=== PATIENT | female | born 1995 | race Hispanic/Latino ===

== ENCOUNTER 2021-02-02 10:53 | Day surgery (SDC) | payer BC, OTHER ==
[2021-02-01 13:09] LABS: Bilirubin Direct 0.2 mg/dL (0-0.2)
[2021-02-02] MEDS ORDERED: Ringers Lactate 1,000 ML IV ONE ×2 (11:06→14:01)
[2021-02-02] MEDS ORDERED: BUPIVACAINE 0.5% PF 10 ML VIAL ONE (11:16)
[2021-02-02] MEDS ORDERED: FENTANYL CITR 100 MCG/2 ML ONE (11:22)
[2021-02-02] MEDS ORDERED: dexAMETHasone 10 MG/ML VIAL ONE (11:22)
[2021-02-02] MEDS ORDERED: MIDAZOLAM HCL 2 MG/2 ML INJ ONE (11:22)
[2021-02-02] MEDS ORDERED: propofoL 200 MG/20 ML VIAL IV ONE (11:22)
[2021-02-02] MEDS ORDERED: KETOROLAC 30 MG/ML INJ ONE (11:23)
[2021-02-02] MEDS ORDERED: ROCURONIUM 50 MG/5 ML VIAL IV ONE (11:24)
[2021-02-02] MEDS ORDERED: ONDANSETRON 4 MG/2 ML VIAL ONE ×2 (11:24→13:44)
[2021-02-02] MEDS ORDERED: LIDOCAINE 1% MPF 30 ML VIAL ONE (11:24)
[2021-02-02] MEDS ORDERED: CEFOXITIN/NS 1gm 1 GM/50 ML BAG ONE (12:24)
--- NOTE | 2021-02-02 13:05 | P.BOP ---
Preoperative diagnosis: acute cholecystitis, biliary dyskinesia, RUQ abd pain Postoperative diagnosis: same Primary procedure: Laparoscopic cholecystectomy Latex Spooler: Jackie Shelton (Sushma) Estimated blood loss: <10cc Specimen: gb Findings: as above Anesthesia: General Complications: None Transferred to: Recovery Room Condition: Good
[2021-02-02] MEDS: HYDROMORPHONE HCL 1 MG/ML INJ ONE ×2 (13:45→13:50)
[2021-02-02] MEDS ORDERED: MEPERIDINE HCL 25 MG/ML SYR ONE (13:55)
[2021-02-02] MEDS ORDERED: CODEINE 30MG/APAP 300MG TAB ONE (15:17)
[2021-02-02] MEDS ORDERED: HYDROCOD 2.5mg-ACETAMIN 108mg/5mL Soln ONE (15:22)
[2021-02-02 16:42] VITALS: BP 129/70; TEMP 98; O2SAT 97
--- NOTE | 2021-02-02 18:36 | OP ---
Date of Procedure: 02/02/2021 Surgeon: Anthony New MD Actuarial Assistant: JAJA Moura. Preoperative Diagnoses: Acute cholecystitis, biliary dyskinesia, right upper quadrant abdominal pain . Postoperative Diagnosis: Acute cholecystitis, biliary dyskinesia, right upper quadrant abdominal alicia n. Procedure: Laparoscopic cholecystectomy. Ebl: Less than 10 cc. Specimen: Gallbladder. Finding: As above. Anesthesia: General plus local. Complications: None. Indication: This is a case of a female who comes to us with above diagnosis, fully explained the cory efits, alternatives, and risks of laparoscopic possible open cholecystectomy, which include, but not limited to infection, bleeding, damage to adjacent structures, anesthesia complication, cholelithiasi s, bile leak, pancreatitis, MO, and even . She also understands this may not relieve the sympto ms. She might need more than one surgical intervention. She understood, signed a consent. She also understands the importance of the low-caffeine diet, low-fat diet, minimal spicy food. 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 Procedure In Detail: The patient was brought to the operating room, placed in supine position, anest hesia was done without complication. Abdominal area was prepped and draped in a usual sterile fashio n. Marcaine 0.5% was injected for local anesthetic followed by sharp incision of the skin in the inf raumbilical region. Incision was carried down to fascia, which was opened under direct vision. Trinh toneum was encountered, opened under direct vision. Vicryl #1 was placed inside the fascia. Yariel trocar was carefully introduced. No bleeding was obtained. I placed 3 more trocars, 5 mm each one o f them in epigastric, right upper quadrant area under direct visualization. This allowed me to put a grasper in the fundus of the gallbladder, another grasper in the infundibulum retracting the gallbla dder in the inferolateral fashion exposing the triangle of Calot obtaining critical view. The cystic duct and cystic artery were clearly isolated, freed circumferentially, and a connection between thos e and the gallbladder were clearly identified. I proceeded to ligate those by using at least 3 clips proximal and 1 clip distally, ligation in middle. Same was done with the cystic artery. No bile le ak. No bleeding. The gallbladder was removed from liver using Bovie cauterizer and removed from abd ominal cavity using EndoCatch through the umbilical incision. The area was inspected once again. No bile leak. No bleeding. At that moment, I proceeded to remove the trocars under direct vision. De flated pneumoperitoneum. Closed the fascia with #1 Vicryl, irrigated subcutaneous tissue, closed eleonora t with 3-0 chromic and skin in a subcuticular fashion with 3-0 chromic and Steri-Strips on top. Spon ge counts and instrument counts correct. The patient tolerated the procedure well. The patient was sent to recovery in stable condition. KATEY/FRANK Voice ID: [id number] Report ID: [id number]
--- NOTE | 2021-02-02 18:42 | DS ---
Date of Discharge: 02/02/2021 Diagnoses: Acute cholecystitis, biliary dyskinesia, right upper quadrant abdominal pain. Procedure: Laparoscopic cholecystectomy. Disposition: Home. Activity: As tolerated, no heavy lifting. Plan: Follow up in my office in 1 week. Call for appointment at [phone]. Keep the area dry for 48 hours, then may shower. Keep Steri-Strip intact. KATEY/FRANK Voice ID: [id number] Report ID: [id number]
== END 2021-02-02 16:00 | disposition home or self-care (01) ==
LOC: OR 10:53
PROVIDERS: ATTEND Surgery
PROC: 0FT44ZZ Resection of Gallbladder, Percutaneous Endoscopic Approach (ICD-10-PCS; principal; 2021-02-02 12:00)
DX: K81.1 Chronic cholecystitis (principal); K82.8 Other specified diseases of gallbladder; R10.11 Right upper quadrant pain; Z20.822 Contact with and (suspected) exposure to COVID-19
CPT/HCPCS: 36415; 82150; 84703; 88304; 82248; 47562; U0003; J2704; J2250; J3010; J1100; J2175; J1170; J7120 ×2; J0694; J2405 ×2

== ENCOUNTER → 2021-02-20 | Emergency (ER) | payer BC, OTHER ==
--- OUTSIDE RECORDS SUMMARY | 2021-02-20 21:05 | XMS REPORT | Continuity of Care Document ---
:1995 Author Organization [facility] t Address [address] [place] [address] Care Team Providers Name Role Phone Jessica MAY Primary Care Physician Unavailable Paula JERRY Attending Clinician Unavailable Fawad Orozco Attending Clinician Claritza BLACK F Attending Clinician BROOKE ACHARYA Attending Clinician Unavailable ANGUS LOPEZ Attending Clinician Unavailable Arsenio KASPER Attending Clinician Doctor Unassigned, Name Attending Clinician Unavailable Provider, Urgent Care Attending Clinician Unavailable Bird BLACK Attending Clinician Lab, Fam Pob I Attending Clinician Unavailable Kenney CEBALLOS Attending Clinician KENNEY Attending Clinician Unavailable Chitra Bishop DO Attending Clinician ARSENIO Admitting Clinician Unavailable FAWAD PERALTA Admitting Clinician Unavailable BROOKE ACHARYA Admitting Clinician Unavailable Arsenio KASPER Admitting Clinician Payers Payer Name Policy Type Policy Number Effective Date Expiration Date S ource [facility] [id number] 2009 00:00:00 SRC AN AETNA [id number] 2014 COMPANY 00:00:00 [facility] [id number] 2020 CHOICE MEDICAID 00:00:00 Problems Condition Condition Condition Status Onset Resolution Last Treating Co mments Source Name Details Category Date Date Treatment Clinician Date 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 2-21 ity of pain pain 00:00: [place] 00 Medical Branch No known No known Disease Unive rs active active ity of problems problems [facility] Allergies, Adverse Reactions, Alerts Allergy Allergy Status Severity Reaction(s) Onset Inactive Treating Comm ents Source Name Type Date Date Clinician NO KNOWN Drug Active Univers ALLERGIE Class ity of S [facility] Social History Social Habit Start Date Stop Date Quantity Comments Source ASSERTION 2019-10-06 [facility] 00:00:00 [facility] Exposure to Not sure [facility] SARS-CoV-2 (event) Medica l [place] Tobacco use and 2020-01-19 2020-01-19 Never used [facility] exposure 00:00:00 00:00:00 [facility] Sex Ass[birth year] At [birth year] [facility] 00:00:00 00:00:00 [facility] Smoking Status Start Date Stop Date Source Never smoker [facility] Unknown if ever smoked [facility] Medications Ordered Filled Start Stop Current Ordering Indication Dosage Frequency Signature Comments Components Source Medication Medication Date Date Medication? Clinician (SIG) Name Name iopamidol 2020-03- No [id number] 120mL 120 mL, Univers (ISOVUE 04-01 Intravenou ity o f 370-500 mL) 06:00: 04:46 s, ONCE, 1 [place] injection 00 :00 dose, On Medica l 120 mL Tue Branch 01/30/21 at 0000, Routine maalox:diph 2020-03- No 15mL 15 mL, Uni vers enhydrAMINE 04-01 Oral ity of :lidocaine 05:30: 04:32 ([place] 2 % viscous 00 :00 Swallow), Med ical 1:1:1 ONCE, 1 Branch (FIRST-MOUT dose, On HWASH BLM) Mon oral 01/29/21 suspension at 2330, 15 mL Routine famotidine 2020-03- No 20mg 20 mg, IV U nivers 20 mg in NS 04-01 Piggyback, i ty of 50 ml 05:30: 04:40 ONCE, 1 [place] (PEPCID) 20 00 :00 dose, On Medi meg mg/50 mL Mon Branch Piggyback 01/29/21 20 mg at 2330, 50 mL ketorolac 2020-03- No 15mg 15 mg, Unive rs (TORADOL) 04-01 Slow IV ity of injection 05:15: 04:32 Push, [place] 15 mg 00 :00 ONCE, 1 Medical dose, On Branch 01/29/21 at 2315, Routine
food court team member approving Restricted medication : Ela PERALTA cephALEXin 2020-03- Yes [id number] 500mg Take 1 Univers 500 mg 03-3107 tablet by ity of tablet 00:00: 05:59 mouth 2 [place] 00 :00 (two) Medical times Branch daily for 7 days. 2019-03 Yes Take 1 Univers vit 2-22 TAB-CAP/M2 ity of calc,iron,f 00:40: by mouth [place] olic 51 daily. Medical ( Branch VITAMIN ORAL) 2019-03 Yes Take 1 Univers vit 2-21 TAB-CAP/M2 ity of calc,iron,f 18:40: by mouth [place] 51 daily. Medical ( Branch VITAMIN ORAL) proMETHazin 2019-03 Yes [id number] 25mg Take 1 Univers e 25 mg 1-18 tablet by ity of tablet 00:00: mouth [place] 00 every 4 Medical (four) Branch hours as needed for Nausea and Vomiting (N/V). proMETHazin 2019-03 Yes [id number] 25mg Take 1 Univers e 25 mg 1-18 tablet by ity of tablet 00:00: mouth [place] 00 every 4 Medical (four) Branch hours as needed for Nausea and Vomiting (N/V). proMETHazin 2019-03 Yes [id number] 25mg Take 1 Univers e 25 mg 1-18 tablet by ity of tablet 00:00: mouth [place] 00 every 4 Medical (four) Branch hours as needed for Nausea and Vomiting (N/V). proMETHazin 2019-03 Yes [id number] 25mg Take 1 Univers e 25 mg 1-18 tablet by ity of tablet 00:00: mouth [place] 00 every 4 Medical (four) Branch hours as needed for Nausea and Vomiting (N/V). diazePAM 2020-0 2020- No 5mg 5 mg, Univers (VALIUM) 8-03 08-03 Oral, ity of tablet 5 mg 01:30: 00:25 ONCE, 1 [place] :[place] dose, [facility] 10/03/19 at Branch 2030, DARIUS diazePAM 2020-0 Yes [id number] 5mg Take 1 Uni vers (VALIUM) 5 8-02 tablet by ity of mg tablet 00:00: mouth 3 [place] 00 (three) Medical times Branch daily as needed for Muscle Spasms. diazePAM 2020-0 Yes [id number] 5mg Take 1 Uni vers (VALIUM) 5 8-02 tablet by ity of mg tablet 00:00: mouth 3 [place] 00 (three) Medical times Branch daily as needed for Muscle Spasms. diazePAM 2020-0 Yes [id number] 5mg Take 1 Uni vers (VALIUM) 5 8-02 tablet by ity of mg tablet 00:00: mouth 3 [place] 00 (three) Medical times Branch daily as needed for Muscle Spasms. diazePAM 2020-0 Yes [id number] 5mg Take 1 Uni vers (VALIUM) 5 8-02 tablet by ity of mg tablet 00:00: mouth 3 [place] 00 (three) Medical times Branch daily as needed for Muscle Spasms. diazePAM 2020-0 Yes [id number] 5mg Take 1 Uni vers (VALIUM) 5 8-02 tablet by ity of mg tablet 00:00: mouth 3 [place] 00 (three) Medical times Branch daily as needed for Muscle Spasms. diazePAM 2020-0 Yes [id number] 5mg Take 1 Uni vers (VALIUM) 5 8-02 tablet by ity of mg tablet 00:00: mouth 3 [place] 00 (three) Medical times Branch daily as needed for Muscle Spasms. diazePAM 2020-0 Yes [id number] 5mg Take 1 Uni vers (VALIUM) 5 8-02 tablet by ity of mg tablet 00:00: mouth 3 [place] 00 (three) Medical times Branch daily as needed for Muscle Spasms. diazePAM 2020-0 Yes [id number] 5mg Take 1 Uni vers (VALIUM) 5 8-02 tablet by ity of mg tablet 00:00: mouth 3 [place] 00 (three) Medical times Branch daily as needed for Muscle Spasms. levoFLOXaci 2015- Yes 500mg Take 1 Uni vers n 0-23 tablet by ity of (LEVAQUIN) 00:00: mouth [place] 500 mg 00 every 24 Medical tablet (twenty-fo Branch ur) hours. levoFLOXaci 2015- Yes 500mg Take 1 Uni vers n 0-23 tablet by ity of (LEVAQUIN) 00:00: mouth [place] 500 mg 00 every 24 Medical tablet (twenty-fo Branch ur) hours. levoFLOXaci 2015- Yes 500mg Take 1 Uni vers n 0-23 tablet by ity of (LEVAQUIN) 00:00: mouth [place] 500 mg 00 every 24 Medical tablet (twenty-fo Branch ur) hours. levoFLOXaci 2015- Yes 500mg Take 1 Uni vers n 0-23 tablet by ity of (LEVAQUIN) 00:00: mouth [place] 500 mg 00 every 24 Medical tablet (twenty-fo Branch ur) hours. levoFLOXaci 2015-03 Yes 500mg Take 1 Uni vers n 0-23 tablet by ity of (LEVAQUIN) 00:00: mouth [place] 500 mg 00 every 24 Medical tablet (twenty-fo Branch ur) hours. levoFLOXaci 2015-03 Yes 500mg Take 1 Uni vers n 0-23 tablet by ity of (LEVAQUIN) 00:00: mouth [place] 500 mg 00 every 24 Medical tablet (twenty-fo Branch ur) hours. levoFLOXaci 2015-03 Yes 500mg Take 1 Uni vers n 0-23 tablet by ity of (LEVAQUIN) 00:00: mouth [place] 500 mg 00 every 24 Medical tablet (twenty-fo Branch ur) hours. levoFLOXaci 2015- Yes 500mg Take 1 Uni vers n 0-23 tablet by ity of (LEVAQUIN) 00:00: mouth [place] 500 mg 00 every 24 Medical tablet (twenty-fo Branch ur) hours. levoFLOXaci 2015- Yes 500mg Take 1 Uni vers n 0-23 tablet by ity of (LEVAQUIN) 00:00: mouth [place] 500 mg 00 every 24 Medical tablet (twenty-fo Branch ur) hours. Immunizations Ordered Filled Immunization Date Status Comments [facility] e Immunization Name Name Td 2015-12-24 Completed [facility] 00:00:00 [place] [facility] Td 2015-12-24 Completed University of 00:00:00 [facility] Td 2015-12-24 Completed University of 00:00:00 [place] [facility] Td 2015-12-24 Completed University of 00:00: [place] [facility] Td 2015-12-24 Completed University of 00:00:00 [place] [facility] Td 2015-12-24 Completed University of 00:00:00 [place] [facility] Td 2015-12-24 Completed University of 00:00:00 [place] [facility] Td 2015-12-24 Completed University of 00:00:00 [facility] Branch Td 2015-12-24 Completed University of 00:00:00 [facility] Vital Signs Vital Name Observation Time Observation Value Comments Source Systolic blood 2021-01-30 06:23:00 115 mm[Hg] Univer sity of pressure [facility] Diastolic blood 2021-01-30 06:23:00 76 mm[Hg] Unive rsity of pressure [facility] Heart rate 2021-01-30 06:23:00 75 /min [facility] Respiratory rate 2021-01-30 06:23:00 16 /min [facility] Oxygen saturation in 2021-01-30 06:23:00 100 /min [facility] Arterial blood by [facility] Pulse oximetry [place] Body temperature 2021-01-30 02:01:00 37.44 Tanja [facility] [place] [facility] Body height 2021-01-30 02:01:00 167.6 cm [facility] Body weight 2021-01-30 02:01:00 72.576 kg [facility] BMI 2021-01-30 02:01:00 25.82 kg/m2 [facility] Systolic blood 2020-02-21 23:39:00 120 mm[Hg] Univer sity of pressure [facility] Diastolic blood 2020-02-21 23:39:00 76 mm[Hg] Unive rsity of pressure [facility] Heart rate 2020-02-21 23:39:00 86 /min [facility] ty [facility] Body temperature 2020-02-21 23:39:00 37.22 Tanja Univ ersity of [facility] Respiratory rate 2020-02-21 23:39:00 18 /min [facility] Body height 2020-02-21 23:39:00 170.2 cm Universi ty of [place] [facility] [place] Body weight 2020-02-21 23:39:00 86.183 kg Universi ty of [place] [facility] BMI 2020-02-21 23:39:00 29.76 kg/m2 Universi ty of [facility] Branch Systolic blood 2020-02-21 23:39:00 120 mm[Hg] Univer sity of pressure [facility] Branch Diastolic blood 2020-02-21 23:39:00 76 mm[Hg] Unive rsity of pressure [facility] Branch Heart rate 2020-02-21 23:39:00 86 /min Universi ty of [facility] Body temperature 2020-02-21 23:39:00 37.22 Tanja Univ ersity of [facility] Branch Respiratory rate 2020-02-21 23:39:00 18 /min Univ ersity of [facility] Body height 2020-02-21 23:39:00 170.2 cm Universi ty of [facility] Body weight 2020-02-21 23:39:00 86.183 kg Universi ty of [facility] BMI 2020-02-21 23:39:00 29.76 kg/m2 Universi ty of [place] [facility] [place] Systolic blood 2020-01-20 01:07:00 137 mm[Hg] Univer sity of pressure [facility] Diastolic blood 2020-01-20 01:07:00 75 mm[Hg] Unive rsity of pressure [facility] Heart rate 2020-01-20 01:07:00 63 /min Universi ty of [facility] Body temperature 2020-01-20 01:07:00 37 Tanja Univ ersity of [facility] Respiratory rate 2020-01-20 01:07:00 17 /min Univ ersity of [facility] Body height 2020-01-20 01:07:00 167.6 cm Universi ty of [facility] Body weight 2020-01-20 01:07:00 80.74 kg Universi ty of [facility] Branch BMI 2020-01-20 01:07:00 28.73 kg/m2 Universi ty of [facility] Oxygen saturation in 2020-01-20 01:07:00 99 /min University of Arterial blood by [facility] Pulse oximetry Branch Systolic blood 2020-01-20 01:07:00 137 mm[Hg] Univer sity of pressure [facility] Diastolic blood 2020-01-20 01:07:00 75 mm[Hg] Unive rsity of pressure [facility] Heart rate 2020-01-20 01:07:00 63 /min Universi ty of [facility] Body temperature 2020-01-20 01:07:00 37 Tanja Univ ersity of [facility] Respiratory rate 2020-01-20 01:07:00 17 /min [facility] Body height 2020-01-20 01:07:00 167.6 cm Universi ty of [facility] Body weight 2020-01-20 01:07:00 80.74 kg Universi ty of [facility] BMI 2020-01-20 01:07:00 28.73 kg/m2 Universi ty [facility] Oxygen saturation in 2020-01-20 01:07:00 99 /min University of Arterial blood by [facility] Pulse oximetry Branch Systolic blood 2019-10-04 00:01:00 142 mm[Hg] Univer sity [facility] Diastolic blood 2019-10-04 00:01:00 93 mm[Hg] Unive rsity of [facility] Heart rate 2019-10-04 00:01:00 82 /min Universi ty of [facility] Body temperature 2019-10-04 00:01:00 37.5 Tanja [facility] Respiratory rate 2019-10-04 00:01:00 20 /min Univ [facility] Body weight 2019-10-04 00:01:00 68.04 kg Universi ty [facility] Oxygen saturation in 2019-10-04 00:01:00 100 /min University of Arterial blood by [facility] Pulse oximetry Branch Procedures Procedure Date / Time Performed Performing Clinician Candy e CT ABDOMEN PELVIS W 2021-01-30 04:48:50 Ela Peralta [facility] CONTRAST [facility] US GALL BLADDER 2021-01-30 03:28:08 Ela Peralta [place] [facility] f [place] [facility] LIPASE 2021-01-30 02:23:00 Ela Peralta [place] [facility] [place] [facility] MAGNESIUM 2021-01-30 02:23:00 Ela Peralta [place] [facility] COMP. METABOLIC PANEL 2021-01-30 02:23:00 Ela Peralta [facility] ([id number]) Medical [place] CBC WITH DIFF 2021-01-30 02:23:00 Ela Peralta [facility] URINALYSIS 2021-01-30 02:23:00 Ela Peralta Fawad [facility] POCT TEST 2021-01-30 02:23:00 Ela Peralta [facility] CONSENT/REFUSAL FOR 2021-01-30 01:46:20 Doctor Unassigned, No [facility] Medical Branch TREATMENT ASSIGNMENT OF BENEFITS 2020-02-21 22:54:53 Doctor Unassigned, No [facility] POCT FLU A AND B 2020-01-20 01:31:00 Tricia Pang [facility] (MOLECULAR) [facility] POCT URINALYSIS 2020-01-20 01:24:00 Lisha Moulton [facility] POCT TEST 2019-10-04 00:14:00 Kinza Bishop [facility] NOTICE OF PRIVACY 2019-10-03 23:52:00 Doctor Unassigned, No Univ [facility] CONSENT/REFUSAL FOR 2019-10-03 23:51:44 Doctor Unassigned, No [facility] TREATMENT Encounters Start End Encounter Admission Attending Care Care Encounter Source Date/Time Date/Time Type Type Clinicians Facility Department ID 2020-12-30 Outpatient P [facility] JAMMIE [id number] Univers 12:36:00 ity [facility] 2020-12-30 Outpatient P [facility] JAMMIE [id number] Univers 12:35:[facility] [place] [facility]12[facility]29 Emergency [facility] [id number] Univers 10:16:05 [facility] [place] 2021-01-29 2021-01-30 Emergency X CLARITZA MOPEE ERT [id number] Univers 20:03:00 00:26:00 JESUS smith [facility] 2021-01-29 2021-01-30 Emergency Ela Peralta [facility] [id number]. [id number] Univers 20:03:00 00:26:00 Jesus Jerry [id number]. 10 ity [facility] [id number] [facility] [id number] [facility] 084 [place] 2020-06-21 2020-06-26 Inpatient PATRIZIA, [facility] 1023 [facility] 18:45:00 13:20:00 AN 2020-06-12 2020-06-13 Emergency E JOHN, [facility] [id number] [facility] 22:20:00 01:48:00 [facility] 2020-02-21 2020-02-21 [facility] Jolly Cesar [place] [id number] [facility] 16:56:00 18:20:00 Encounter [place] [id number] ity of [place] [id number] [facility] [id number] [place] [id number] [place] 2020-02-21 2020-02-21 [facility] Jolly Cesar [place] [id number] 16:56:00 18:20:00 Encounter [place] [id number] [place] 4.2.7.2.686 Rose [place] [id number] [facility] 2020-02-21 2020-02-21 Orders Doctor LISHA [id number] Univers 00:00:00 00:00:00 Only Unassigned, CLIVE [id number] ity of [place] [facility] 4.2.7.2.686 Alvin as [id number] [facility] 009 [place] 2020-02-21 2020-02-21 Orders Doctor HUSAIN [id number] 00:00:00 00:00:00 Only Unassigned, CLIVE [id number] [place] [facility] 4.2.7.2.686 [id number] 2020-01-19 2020-01-19 Urgent Provider, [facility] [id number] Univers 19:07:17 19:27:17 Care [facility] [id number] ity of [place] 4.2.7.2.686 Alvin as Professio [id number] Mo dical [facility] 044 [place] [address] 2020-01-19 2020-01-19 Urgent Provider, [facility] [id number] 19:07:17 19:27:17 Care [facility] Health [id number] Care [place] 4.2.7.2.686 Professio [id number] nal [facility] Office [address] 2020-01-19 2020-01-19 Laboratory Lab, Adc Fam Pob I [facility] [id number]. [id number] Univers 18:57:11 19:17:11 Only Lisha Moulton [facility] [id number] ity of [place] 4.2.7.2.686 Alvin as Professio [phone] Me dical [address] Office [address] 2020-01-19 2020-01-19 Outpatient R [facility] [id number] Univers 19:00:00 19:00:00 [id number] ity [facility] 2020-01-19 2020-01-19 Outpatient R KENNEY [facility] [id number] Univers 19:00:00 19:00:00 LISHA itjo [facility] 2020-01-19 2020-01-19 Letter Doctor LISHA [id number] Univers 00:00:00 00:00:00 (Out) Unassigned, CLIVE [id number] ity of [place] [facility] [id number] Alvin as [phone] [facility] 044 [place] 2019-10-03 2019-10-03 Emergency [facility] [id number] Univers 19:03:00 19:42:00 Kinza Witt [id number] ity of [place] [id number] [facility] [id number] [facility] 084 [place] 2019-10-03 2019-10-03 Orders Doctor LISHA [id number] Univers 00:00:00 00:00:00 Only Unassigned, CLIVE [id number] ity of [place] [facility] [id number] Alvin as [id number] [facility] 009 [place] Results Test Description Test Time Test Comments Results Result Comments Source MAGNESIUM 2021-01-30 02:51:25 Test Item Value Reference Range Interpretation Comme nts MAGNESIUM (test code = 5930535877) 1.9 mg/dL 1.7-2.4 Lab Interpretation (test code = 16037-8) Normal [facility] ([id number])2021-01-30 02:50:44 Test Item Value Reference Range Interpretation Comments NA (test code = 136 mmol/L 135-145 9836239931) K (test code = 3.6 mmol/L 3.5-5.0 4038489294) CL (test code = 104 mmol/L 98-108 8367127503) CO2 TOTAL (test code 26 mmol/L 23-31 = 3499304391) AGAP (test code = 2-16 9037710144) BUN (test code = 17 mg/dL 7-23 8636308530) GLUCOSE (test code = 90 mg/dL 70-110 9615955041) CREATININE (test code 0.57 mg/dL 0.50-1.04 = 5950540416) TOTAL BILI (test code 0.6 mg/dL 0.1-1.1 = 3302300279) CALCIUM (test code = 9.2 mg/dL 8.6-10.6 2037751400) T PROTEIN (test code 7.6 g/dL 6.3-8.2 = 7436966611) ALBUMIN (test code = 4.6 g/dL 3.5-5.0 4437083135) ALK PHOS (test code = 64 U/L 34-122 6097731849) ALTv (test code = 22 U/L 5-35 1742-6) AST(SGOT) (test code 24 U/L 13-40 = 1436621950) eGFR (test code = mL/min/1.73m2 6644213554) NORMA (test code = NORMA) Association of Glomerular Filtration Rate (GFR) and Staging of Kidney Disease* + + +- +| GFR (mL/min/1.73 m2) ?| With Kidney Damage ?| ?Without Kidney Damage+ ------+ ----+ ------+| ?>90 ?| ?Stage one ?| ? Normal ?+ -+ + -+| ?60-89 ?| ?Stage two ?| ? Decreased GFR ? + + +- +| ?30-59 ?| ?Stage three ?| ? Stage three ? + + +- +| ?15-29 ?| ?Stage four ? | ? Stage four ?+ -+ + -+| ?<15 (or dialysis) ? ?| ?Stage five ? | ? Stage five ?+ -+ + -+ *Each stage assumes the associated GFR level has been in effect for at least three months. ?Stages 1 to 5, with or without kidney disease, indicate chronic kidney disease. Notes: Determination of stages one and two (with eGFR >59mL/min/1.73 m2) requires estimation of kidney damage for at least three months as defined by structural or functional abnormalities of the kidney, manifested by either:Pathological abnormalities or Markers of kidney damage (including abnormalities in the composition of the blood or urine or abnormalities in imaging tests). [facility] 02[facility]50:44 Test Item Value Reference Range Interpretation Comments LIPASE (test code = 9925113757) 83 U/L 0-220 Lab Interpretation (test code = Normal 07972-9) [facility] WITH [id number] 02:35:42 Test Item Value Reference Range Interpretation Comments WBC (test code = See_Comment [Automated message] 6690-2) The system [employer] generated this result transmitted ref erence range: 4.30 - 1 1.10 10*3/?L. The re ference range was not u sed to interpret this result as normal/abnor mal. RBC (test code = See_Comment [Automated message] 789-8) The system [employer] generated this result transmitted ref erence range: 3.93 - 5 .25 10*6/?L. The re ference range was not u sed to interpret this result as normal/abnor mal. HGB (test code = 13.1 g/dL 11.6-15.0 718-7) HCT (test code = 38.6 % 35.7-45.2 4544-3) MCV (test code = 90.8 fL 80.6-95.5 787-2) MCH (test code = 30.8 pg 25.9-32.8 785-6) MCHC (test code = 33.9 g/dL 31.6-35.1 786-4) RDW-SD (test code 44.8 fL 39.0-49.9 = 91948-5) RDW-CV (test code 13.6 % 12.0-15.5 = 788-0) PLT (test code = See_Comment [Automated message] 777-3) The system whic h generated this result transmitted ref erence range: 166 - 35 8 10*3/?L. The re ference range was not u sed to interpret this result as normal/abnor mal. MPV (test code = 11.2 fL 9.5-12.9 49030-5) NRBC/100 WBC (test See_Comment [Automat ed message] code = 1298811392) The syste m which generated this result transmitted ref erence range: 0.0 - 10 .0 /100 WBCs. The refer ence range was not u sed to interpret this result as normal/abnor mal. NRBC x10^3 (test <0.01 See_Comment [Automated message] code = [id number]) The syste m which generated this result transmitted ref erence range: 10*3/?L. The reference range was not used to interpr et this result as normal/abnormal . GRAN MAT (NEUT) % 64.1 % (test code = 770-8) IMM GRAN % (test 0.40 % code = [id number]) LYMPH % (test code 26.9 % = 736-9) MONO % (test code 7.3 % = 5905-5) EOS % (test code = 0.7 % 713-8) BASO % (test code 0.6 % = 706-2) GRAN MAT 5.45 10*3/uL 1.88-7.09 x10^3(ANC) (test code = [id number]) IMM GRAN x10^3 0.03 10*3/uL 0.00-0.06 (test code = [id number]) LYMPH x10^3 (test 2.28 10*3/uL 1.32-3.29 code = 731-0) MONO x10^3 (test 0.62 10*3/uL 0.33-0.92 code = 742-7) EOS x10^3 (test 0.06 10*3/uL 0.03-0.39 code = 711-2) BASO x10^3 (test 0.05 10*3/uL 0.01-0.07 code = 704-7) [facility] [id number] 02:23:00 Test Item Value Reference Range Interpretation Comments POCT PREG (test code = 1605) negative On board controls acceptable with positive C Line (test code = 3574) POCT PREG LOT # (test code = 3575) [id number] POCT PREG TEST DATE (test 04/02/2022 code = 3576) Lab Interpretation (test code = Normal 33273-9) [facility] URINALYSIS W SPECIFIC [id number] 01:35:00 Test Item Value Reference Range Interpretation Comments POCT U SP GRAV (test code = 1.005 mg/dl 1.005-1.025 3255) POCT PH U (test code = 3254) 8 mg/dl 5-8 POCT U LEUK EST (test code = trace Negative - Negative 3263) POCT U NIT (test code = 3262) neg Negative - Negative POCT U PROT (test code = neg Negative - Negative 3259) POCT U GLU (test code = 3256) neg Negative - Negative POCT U KETONE (test code = neg Negative - Negative 3258) POCT U UROBILI (test code = neg 0.2-1 0) POCT U BILI (test code = neg Negative - Negative 3261) POCT U BLD (test code = 3257) neg Negative - Negative POCT U COLOR (test code = yellow 3266) POCT U APPEAR (test code = cloudy 3267) [facility] URINALYSIS W SPECIFIC [id number] 01:35:00 Test Item Value Reference Range Interpretation Comments POCT U SP GRAV (test code = 1.005 mg/dl 1.005-1.025 3255) POCT PH U (test code = 3254) 8 mg/dl 5-8 POCT U LEUK EST (test code = trace Negative - Negative 3263) POCT U NIT (test code = 3262) neg Negative - Negative POCT U PROT (test code = neg Negative - Negative 3259) POCT U GLU (test code = 3256) neg Negative - Negative POCT U KETONE (test code = neg Negative - Negative 3258) POCT U UROBILI (test code = neg 0.2-1 3260) POCT U BILI (test code = neg Negative - Negative 3261) POCT U BLD (test code = 3257) neg Negative - Negative POCT U COLOR (test code = yellow 3266) POCT U APPEAR (test code = cloudy 3267) [facility] FLU A AND B (MOLECULAR)2020-01-20 01:31:00 Test Item Value Reference Range Interpretation Comments POCT INFLUENZA A (test code = Negative Negative - Negative 3840) POCT INFLUENZA B (test code = Negative Negative - Negative 3841) Lab Interpretation (test code = Normal 11023-7) [facility] FLU A AND B (MOLECULAR)2020-01-20 01:31:00 Test Item Value Reference Range Interpretation Comments POCT INFLUENZA A (test code = Negative Negative - Negative 3840) POCT INFLUENZA B (test code = Negative Negative - Negative 3841) Lab Interpretation (test code = Normal 33462-9) [facility] [id number] 00:14:00 Test Item Value Reference Range Interpretation Comments POCT PREG (test code = 1605) negative On board controls acceptable with positive C Line (test code = 3574) POCT PREG LOT # (test code = 3575) [id number] POCT PREG TEST DATE (test 11-30-2020 code = 3576) Lab Interpretation (test code = Normal 39096-3) [facility]"
== END ==
LOC: ER 21:00
DX: Z02.9 Encounter for administrative examinations, unspecified (principal)